=== PATIENT | male | born 1960 | race Caucasian/White ===

== ENCOUNTER 2017-07-01 19:24 | Inpatient (IN) | payer MEDICAID, OTHER ==
[~2017-07-01] VITALS: Ht 154.9 cm; Wt 69.6 kg
[~2017-07-01 19:24] MED LIST: INSU100I18 SC; INSU100I29 SQ-INSULIN; INSU100V14 SC; LISI-170 PO; METF500T4 PO
[2017-07-01] MEDS ORDERED: SODIUM CHLORIDE 0.9% 1,000 ML IV ONE (20:35)
[2017-07-01] MEDS ORDERED: KETOROLAC 30 MG/1 ML ONE (20:39)
[2017-07-01] MEDS ORDERED: OMNIPAQUE 350 MG/ML, 100ML BOTTLE ONE (20:40)
[2017-07-01 20:55] LABS: MEAN CORPUSCULAR HEMOGLOBIN 29.3 pg (27.5-34.5); MEAN CORPUSCULAR HGB CONC 33.7 g/dL (33.2-36.2); MEAN PLATELET VOLUME 8.4 fL (7.4-10.4); PLATELET COUNT 356 x10^3/uL (130-400); RED BLOOD COUNT 4.71 x10^6/uL (4.38-5.82); RED CELL DISTRIBUTION WIDTH 12.6 % (9.4-14.8)
[2017-07-01] MEDS ORDERED: SODIUM CHLORIDE FLUSH 10ML SYR IVF ONE (21:00)
[2017-07-01] MEDS ORDERED: KETOROLAC 30 MG/1 ML IVPush ONE (21:00)
[2017-07-01 21:02] LABS: INTERNATIONAL NORMALIZED RATIO 1.09 (0.93-1.1); PROTHROMBIN TIME 11.3 Seconds (9.6-11.5)
[2017-07-01 21:05] LABS: ALANINE AMINOTRANSFERASE 16 U/L (12-78); ALBUMIN 2.4 g/dL (3.4-5.0); ANION GAP 13 mmol/L (5-15); CALCIUM 8.3 mg/dL (8.5-10.1); CHLORIDE 96 mmol/L (98-107)
[2017-07-01 21:10] LABS: ALKALINE PHOSPHATASE 107 U/L (45-117); BILIRUBIN,TOTAL 1.1 mg/dL (0.2-1.0); CREATININE 1.17 mg/dL (0.7-1.3); TOTAL PROTEIN 7.6 g/dL (6.4-8.2); TROPONIN I < 0.015 ng/mL (0.000-0.045)
[2017-07-01] MEDS ORDERED: ACETAMINOPHEN 500 MG TABLET ONE (21:12)
[2017-07-01] MEDS ORDERED: AZITHROMYCIN 500 MG in SODIUM CHLORIDE 0.9% 250 ML IV ONE (21:30)
[2017-07-01] MEDS ORDERED: SODIUM CHLORIDE 0.9% 1,000ML IVBOLUS ONE (21:30)
[2017-07-01] MEDS ORDERED: CEFTRIAXONE 1,000 MG in SODIUM CHLORIDE 0.9% 50 ML IVPB ONE (21:30)
[2017-07-01 21:36] LABS: BASOPHILS # (AUTO) 0.02 x10^3/uL (0-0.1); BASOPHILS % (AUTO) 0 % (0-1); EOSINOPHILS % (AUTO) 0 % (1-7); LYMPHOCYTES # (AUTO) 0.72 x10^3/uL (1-3.4); LYMPHOCYTES % (AUTO) 5 % (22-44); MD SCAN; MONOCYTES # (AUTO) 1.21 x10^3/uL (0.2-0.8); MONOCYTES % (AUTO) 8 % (2-9); NEUTROPHILS # (AUTO) 13.53 x10^3/uL (1.8-6.8); NEUTROPHILS % (AUTO) 87 % (42-75)
[2017-07-01] MEDS ORDERED: CEFTRIAXONE PMX 1GM/50ML 50 ML ONE (22:11)
[2017-07-01 22:31] LABS: RAPID INFLUENZA A Negative (Negative); RAPID INFLUENZA B Negative (Negative)
[2017-07-01] MEDS ORDERED: INSU100V8 SQ (22:41)
[2017-07-01] MEDS ORDERED: DOCUSATE 100 MG CAPSULE PO PRN (23:30)
[2017-07-01] MEDS ORDERED: ONDANSETRON ODT 4 MG PO PRN (23:30)
[2017-07-01] MEDS ORDERED: INSULIN ASPART 100 UNITS/ML, PEN SQ-INSULIN SCH (23:30)
[2017-07-01] MEDS ORDERED: ENALAPRILAT 1.25 MG/ML, 2ML IVPush PRN (23:30)
[2017-07-01] MEDS ORDERED: KETOROLAC 30 MG/1 ML IM PRN (23:30)
[2017-07-01] MEDS: INSULIN GLARGINE 100 UNITS/ML, PEN SQ-INSULIN SCH (23:30)
[2017-07-01] MEDS ORDERED: TEMAZEPAM 15 MG CAPSULE PO PRN (23:30)
[2017-07-02 00:38] VITALS: BP 141/81
[2017-07-02] MEDS ORDERED: LISI5TAB7 PO (00:59)
[2017-07-02] MEDS ORDERED: SIMV20TA3 PO (01:07)
[2017-07-02] MEDS ORDERED: ASPI-621 PO (01:08)
[2017-07-02] MEDS ORDERED: GLIP10TA13 PO (01:09)
[2017-07-02] MEDS: ENOXAPARIN 40 MG/0.4 ML SQ SCH ×2 (01:25→01:27)
[2017-07-02] MEDS: SODIUM CHLORIDE 0.9% 1,000 ML IV SCH ×3 (01:28→17:02)
[2017-07-02 02:33] VITALS: BP 141/81
[2017-07-02 03:00] VITALS: BP 102/68
[2017-07-02 03:42] LABS: TROPONIN I < 0.015 ng/mL (0.000-0.045)
[2017-07-02] MEDS: ACETAMINOPHEN 325 MG TABLET PO PRN (06:40)
[2017-07-02] MEDS: INSULIN LISPRO 100 UNITS/ML, PEN SQ-INSULIN SCH ×2 (07:00→13:11)
[2017-07-02 07:02] VITALS: BP 98/63
[2017-07-02] MEDS ORDERED: INSULIN LISPRO 100 UNITS/ML, PEN SQ-INSULIN SCH (09:00)
[2017-07-02] MEDS: LISINOPRIL 20 MG TABLET PO SCH (09:23)
[2017-07-02 09:27] LABS: TROPONIN I < 0.015 ng/mL (0.000-0.045)
[2017-07-02 11:20] LABS: ALBUMIN 2.1 g/dL (3.4-5.0); ANION GAP 6 mmol/L (5-15); CHLORIDE 102 mmol/L (98-107); CREATININE 1.18 mg/dL (0.7-1.3)
[2017-07-02 11:28] LABS: MEAN CORPUSCULAR HEMOGLOBIN 29.4 pg (27.5-34.5); MEAN CORPUSCULAR HGB CONC 33.5 g/dL (33.2-36.2); MEAN CORPUSCULAR VOLUME 87.7 fL (81-97); MEAN PLATELET VOLUME 8.4 fL (7.4-10.4); PLATELET COUNT 354 x10^3/uL (130-400); RED BLOOD COUNT 4.54 x10^6/uL (4.38-5.82); RED CELL DISTRIBUTION WIDTH 13.3 % (9.4-14.8)
[2017-07-02 11:29] LABS: MD YES
[2017-07-02 11:31] LABS: BAND#(MANUAL) 2.07 x10^3/uL; BANDS%(MANUAL) 13 % (0-7); LYMPH#(MANUAL) 1.43 x10^3/uL (1-3.4); LYMPHS% (MANUAL) 9 % (22-44); MONOS#(MANUAL) 0.64 x10^3/uL (0.3-2.7); MONOS% (MANUAL) 4 % (2-9); SEG#(MANUAL) 11.77 x10^3/uL (1.8-6.8); SEGS% (MANUAL) 74 % (42-75)
[2017-07-02 11:33] LABS: <PLATELET ESTIMATE> ADEQUATE; <PLT MORPHOLOGY> NORMAL PLT MORPH; <RBC MORPHOLOGY> NORMAL; PMNS WITH VACUOLES 1+; TOXIC GRAN 1+
[2017-07-02 14:42] VITALS: BP 96/63
[2017-07-02] MEDS ORDERED: VANCOMYCIN PER PHARMACY MC PRN (16:30)
[2017-07-02] MEDS: GUAIFENESIN 200 MG TABLET PO SCH ×2 (16:54→20:36)
[2017-07-02] MEDS ORDERED: PHARMACOKINETIC CONSULTATION MC ONE (17:00)
[2017-07-02] MEDS ORDERED: PHARMACOKINETIC MONITORING MC PRN (17:00)
[2017-07-02] MEDS: VANCOMYCIN 1,200 MG in SODIUM CHLORIDE 0.9% 250 ML IV SCH (17:03)
[2017-07-02] MEDS: INSULIN REGULAR 100 UNITS/ML, 3ML VIAL SQ-INSULIN SCH ×2 (18:34→20:37)
[2017-07-02 19:42] VITALS: BP 101/66
[2017-07-02] MEDS: AZITHROMYCIN 500 MG in SODIUM CHLORIDE 0.9% 250 ML IV SCH (20:37)
[2017-07-02] MEDS: INSULIN GLARGINE 100 UNITS/ML, PEN SQ-INSULIN SCH (20:37)
[2017-07-02] MEDS ORDERED: CEFTRIAXONE 2 GM in SODIUM CHLORIDE 0.9% 50 ML IV SCH (21:30)
[2017-07-02] MEDS ORDERED: CEFTRIAXONE PMX 1GM/50ML 50 ML IV SCH (21:30)
[2017-07-02] MEDS ORDERED: CEFTRIAXONE 1,000 MG in SODIUM CHLORIDE 0.9% 50 ML IV SCH (21:30)
[2017-07-03 02:01] VITALS: BP 104/68
[2017-07-03] MEDS: SODIUM CHLORIDE 0.9% 1,000 ML IV SCH ×2 (05:02→13:19)
[2017-07-03] MEDS: VANCOMYCIN 1,200 MG in SODIUM CHLORIDE 0.9% 250 ML IV SCH ×2 (05:02→20:14)
[2017-07-03] MEDS: GUAIFENESIN 200 MG TABLET PO SCH ×4 (05:02→20:14)
[2017-07-03 05:24] LABS: MEAN CORPUSCULAR HEMOGLOBIN 29.3 pg (27.5-34.5); MEAN CORPUSCULAR HGB CONC 33.4 g/dL (33.2-36.2); MEAN CORPUSCULAR VOLUME 87.8 fL (81-97); MEAN PLATELET VOLUME 8.3 fL (7.4-10.4); PLATELET COUNT 376 x10^3/uL (130-400); RED BLOOD COUNT 4.21 x10^6/uL (4.38-5.82); RED CELL DISTRIBUTION WIDTH 12.9 % (9.4-14.8)
[2017-07-03 05:36] LABS: ALBUMIN 1.6 g/dL (3.4-5.0); ANION GAP 9 mmol/L (5-15); CALCIUM 7.6 mg/dL (8.5-10.1); CHLORIDE 109 mmol/L (98-107)
[2017-07-03 05:41] LABS: ALANINE AMINOTRANSFERASE 12 U/L (12-78); ALKALINE PHOSPHATASE 119 U/L (45-117); BILIRUBIN,TOTAL 0.6 mg/dL (0.2-1.0); CREATININE 0.85 mg/dL (0.7-1.3); TOTAL PROTEIN 5.8 g/dL (6.4-8.2)
[2017-07-03 06:00] LABS: MD YES
[2017-07-03 06:02] LABS: <PLATELET ESTIMATE> ADEQUATE; <PLT MORPHOLOGY> NORMAL PLT MORPH; <RBC MORPHOLOGY> NORMAL; BAND#(MANUAL) 2.38 x10^3/uL; BANDS%(MANUAL) 14 % (0-7); LYMPH#(MANUAL) 0.85 x10^3/uL (1-3.4); LYMPHS% (MANUAL) 5 % (22-44); MONOS#(MANUAL) 0.85 x10^3/uL (0.3-2.7); MONOS% (MANUAL) 5 % (2-9); SEG#(MANUAL) 12.92 x10^3/uL (1.8-6.8); SEGS% (MANUAL) 76 % (42-75)
[2017-07-03] MEDS: INSULIN REGULAR 100 UNITS/ML, 3ML VIAL SQ-INSULIN SCH ×4 (08:30→20:12)
[2017-07-03 08:39] VITALS: BP 104/70
[2017-07-03] MEDS: ACETAMINOPHEN 325 MG TABLET PO PRN ×2 (09:22→20:14)
[2017-07-03] MEDS: LISINOPRIL 20 MG TABLET PO SCH (09:25)
[2017-07-03] MEDS: INSULIN GLARGINE 100 UNITS/ML, PEN SQ-INSULIN SCH ×2 (09:25→20:12)
[2017-07-03] MEDS ORDERED: ALBUTEROL SULFATE 2.5 MG/3 ML ONE (10:26)
[2017-07-03] MEDS: IBUPROFEN 200 MG TABLET PO PRN (13:18)
[2017-07-03 14:29] VITALS: BP 99/66
[2017-07-03] MEDS: ALBUTEROL SULFATE 2.5 MG/3 ML NPPB SCH ×2 (15:00→19:10)
[2017-07-03] MEDS: LINEZOLID PMX 600MG/300ML 300 ML IV SCH (16:39)
[2017-07-03 16:49] LABS: MICROSCOPIC INDICATED
[2017-07-03 16:58] LABS: CULTURE INDICATED? NO
[2017-07-03] MEDS ORDERED: SODIUM CHLORIDE 0.9%, 500ML IVBOLUS ONE (17:30)
[2017-07-03 17:57] VITALS: BP 109/72
[2017-07-03 19:50] VITALS: BP 111/66
[2017-07-03] MEDS: AZITHROMYCIN 500 MG in SODIUM CHLORIDE 0.9% 250 ML IV SCH (21:30)
[2017-07-03] MEDS: ENOXAPARIN 40 MG/0.4 ML SQ SCH (23:18)
[2017-07-04 02:00] VITALS: BP 115/73
[2017-07-04] MEDS: SODIUM CHLORIDE 0.9% 1,000 ML IV SCH (03:00)
[2017-07-04] MEDS: LINEZOLID PMX 600MG/300ML 300 ML IV SCH (03:59)
[2017-07-04 05:02] LABS: MEAN CORPUSCULAR HEMOGLOBIN 29.6 pg (27.5-34.5); MEAN CORPUSCULAR HGB CONC 33.6 g/dL (33.2-36.2); MEAN CORPUSCULAR VOLUME 88.2 fL (81-97); MEAN PLATELET VOLUME 8.2 fL (7.4-10.4); PLATELET COUNT 398 x10^3/uL (130-400); RED BLOOD COUNT 3.91 x10^6/uL (4.38-5.82); RED CELL DISTRIBUTION WIDTH 13.3 % (9.4-14.8)
[2017-07-04 05:16] LABS: CHLORIDE 112 mmol/L (98-107)
[2017-07-04 05:24] LABS: ALANINE AMINOTRANSFERASE 9 U/L (12-78); ALBUMIN 1.4 g/dL (3.4-5.0); ALKALINE PHOSPHATASE 95 U/L (45-117); ANION GAP 10 mmol/L (5-15); BILIRUBIN,TOTAL 0.4 mg/dL (0.2-1.0); CALCIUM 7.6 mg/dL (8.5-10.1); CREATININE 0.54 mg/dL (0.7-1.3); TOTAL PROTEIN 5.4 g/dL (6.4-8.2); VANCOMYCIN,TROUGH 14.1 mcg/mL (5.0-10.0)
[2017-07-04] MEDS: GUAIFENESIN 200 MG TABLET PO SCH ×4 (05:54→20:11)
[2017-07-04 05:59] LABS: MD YES
[2017-07-04 06:02] LABS: BAND#(MANUAL) 0.29 x10^3/uL; BANDS%(MANUAL) 2 % (0-7); EOS#(MANUAL) 0.43 x10^3/uL (0.0-0.4); EOS% (MANUAL) 3 % (1-7); LYMPH#(MANUAL) 1.43 x10^3/uL (1-3.4); LYMPHS% (MANUAL) 10 % (22-44); MONOS% (MANUAL) 7 % (2-9); SEG#(MANUAL) 11.15 x10^3/uL (1.8-6.8); SEGS% (MANUAL) 78 % (42-75)
[2017-07-04 06:03] LABS: <PLATELET ESTIMATE> ADEQUATE; <PLT MORPHOLOGY> NORMAL PLT MORPH; <RBC MORPHOLOGY> NORMAL
[2017-07-04 06:50] VITALS: BP 129/77
[2017-07-04] MEDS: ALBUTEROL SULFATE 2.5 MG/3 ML NPPB SCH ×3 (07:00→18:43)
[2017-07-04] MEDS: INSULIN REGULAR 100 UNITS/ML, 3ML VIAL SQ-INSULIN SCH ×4 (07:00→20:12)
[2017-07-04] MEDS ORDERED: POTASSIUM CHLORIDE 20 MEQ TAB.ER.PRT ONE (07:55)
[2017-07-04] MEDS ORDERED: SODIUM PHOSPHATE 4 MEQ/ML IV SCH (08:00)
[2017-07-04] MEDS ORDERED: SODIUM CHLORIDE 0.45% 1,000 ML IV SCH (08:00)
[2017-07-04] MEDS: VANCOMYCIN 1,200 MG in SODIUM CHLORIDE 0.9% 250 ML IV SCH (08:03)
[2017-07-04] MEDS: INSULIN GLARGINE 100 UNITS/ML, PEN SQ-INSULIN SCH ×2 (08:05→20:12)
[2017-07-04] MEDS ORDERED: MAGNESIUM SULFATE PMX 2GM/50ML 50 ML IV ONE (09:00)
[2017-07-04] MEDS ORDERED: SODIUM PHOSPHATE 40 MEQ in SODIUM CHLORIDE 0.9% 500 ML IV SCH (09:00)
[2017-07-04] MEDS ORDERED: POTASSIUM CHLORIDE 20 MEQ TAB.ER.PRT PO ONE (09:00)
[2017-07-04] MEDS: IBUPROFEN 200 MG TABLET PO PRN (09:32)
[2017-07-04] MEDS: CEFAZOLIN PMX 2GM/50ML 50 ML IVPB SCH ×2 (12:23→20:11)
[2017-07-04 13:22] VITALS: BP 105/64
[2017-07-04 19:05] VITALS: BP 129/78
[2017-07-04] MEDS: ENOXAPARIN 40 MG/0.4 ML SQ SCH (23:41)
[2017-07-05 00:58] VITALS: BP 133/79
[2017-07-05] MEDS: CEFAZOLIN PMX 2GM/50ML 50 ML IVPB SCH ×3 (03:53→20:10)
[2017-07-05] MEDS: GUAIFENESIN 200 MG TABLET PO SCH ×4 (05:00→20:56)
[2017-07-05 05:42] LABS: HCT (SEDRATE) 36.9 % (39.2-51.8); MEAN CORPUSCULAR HEMOGLOBIN 29.2 pg (27.5-34.5); MEAN CORPUSCULAR HGB CONC 33.3 g/dL (33.2-36.2); MEAN CORPUSCULAR VOLUME 87.8 fL (81-97); MEAN PLATELET VOLUME 8.4 fL (7.4-10.4); PLATELET COUNT 490 x10^3/uL (130-400); RED CELL DISTRIBUTION WIDTH 13.5 % (9.4-14.8)
[2017-07-05 05:50] LABS: ALBUMIN 1.6 g/dL (3.4-5.0); ANION GAP 10 mmol/L (5-15); CALCIUM 7.6 mg/dL (8.5-10.1); CHLORIDE 106 mmol/L (98-107); CREATININE 0.92 mg/dL (0.7-1.3)
[2017-07-05 06:05] LABS: BASOPHILS # (AUTO) 0.15 x10^3/uL (0-0.1); BASOPHILS % (AUTO) 1 % (0-1); EOSINOPHILS # (AUTO) 0.08 x10^3/uL (0-0.4); EOSINOPHILS % (AUTO) 1 % (1-7); LYMPHOCYTES % (AUTO) 8 % (22-44); MD SCAN; MONOCYTES # (AUTO) 1.29 x10^3/uL (0.2-0.8); MONOCYTES % (AUTO) 11 % (2-9); NEUTROPHILS # (AUTO) 9.14 x10^3/uL (1.8-6.8); NEUTROPHILS % (AUTO) 79 % (42-75)
[2017-07-05 06:21] LABS: SEDIMENTATION RATE 109 mm/hr (0-10)
[2017-07-05 06:31] LABS: HEMOGLOBIN A1C 14.5 % (4.2-6.3)
[2017-07-05] MEDS: ALBUTEROL SULFATE 2.5 MG/3 ML NPPB SCH (07:00)
[2017-07-05] MEDS ORDERED: POTASSIUM CHLORIDE 20 MEQ TAB.ER.PRT PO ONE (08:00)
[2017-07-05 08:41] VITALS: BP 112/93
[2017-07-05] MEDS: SODIUM CHLORIDE 0.45% 1,000 ML IV SCH ×2 (09:14→20:57)
[2017-07-05] MEDS: INSULIN GLARGINE 100 UNITS/ML, PEN SQ-INSULIN SCH ×2 (09:15→20:56)
[2017-07-05] MEDS: INSULIN REGULAR 100 UNITS/ML, 3ML VIAL SQ-INSULIN SCH ×4 (09:15→20:56)
[2017-07-05 16:19] VITALS: BP 124/80
[2017-07-05 19:53] VITALS: BP 112/66
[2017-07-05] MEDS: ENOXAPARIN 40 MG/0.4 ML SQ SCH (23:16)
[2017-07-06 00:58] VITALS: BP 115/73
[2017-07-06] MEDS: SODIUM CHLORIDE 0.45% 1,000 ML IV SCH (04:28)
[2017-07-06] MEDS: CEFAZOLIN PMX 2GM/50ML 50 ML IVPB SCH ×3 (04:28→20:35)
[2017-07-06 05:30] LABS: ANION GAP 9 mmol/L (5-15); BASOPHILS # (AUTO) 0.03 x10^3/uL (0-0.1); BASOPHILS % (AUTO) 0 % (0-1); CHLORIDE 107 mmol/L (98-107); EOSINOPHILS # (AUTO) 0.11 x10^3/uL (0-0.4); EOSINOPHILS % (AUTO) 1 % (1-7); LYMPHOCYTES # (AUTO) 1.15 x10^3/uL (1-3.4); LYMPHOCYTES % (AUTO) 10 % (22-44); MD NO; MEAN CORPUSCULAR HEMOGLOBIN 29.6 pg (27.5-34.5); MEAN CORPUSCULAR HGB CONC 33.8 g/dL (33.2-36.2); MEAN CORPUSCULAR VOLUME 87.7 fL (81-97); MEAN PLATELET VOLUME 7.8 fL (7.4-10.4); MONOCYTES # (AUTO) 1.14 x10^3/uL (0.2-0.8); MONOCYTES % (AUTO) 10 % (2-9); NEUTROPHILS # (AUTO) 9.02 x10^3/uL (1.8-6.8); NEUTROPHILS % (AUTO) 79 % (42-75); PLATELET COUNT 563 x10^3/uL (130-400); RED BLOOD COUNT 4.02 x10^6/uL (4.38-5.82); RED CELL DISTRIBUTION WIDTH 13.6 % (9.4-14.8)
[2017-07-06 05:32] LABS: CREATININE 0.64 mg/dL (0.7-1.3)
[2017-07-06] MEDS: GUAIFENESIN 200 MG TABLET PO SCH ×4 (06:21→21:31)
[2017-07-06] MEDS ORDERED: ALBUTEROL SULFATE 2.5 MG/3 ML NPPB SCH (07:00)
[2017-07-06] MEDS ORDERED: POTASSIUM CHLORIDE 20 MEQ TAB.ER.PRT PO ONE ×2 (07:30→11:30)
[2017-07-06 08:59] VITALS: BP 103/64
[2017-07-06] MEDS: INSULIN GLARGINE 100 UNITS/ML, PEN SQ-INSULIN SCH ×2 (09:21→21:33)
[2017-07-06] MEDS: INSULIN REGULAR 100 UNITS/ML, 3ML VIAL SQ-INSULIN SCH ×4 (09:21→21:32)
[2017-07-06 15:33] VITALS: BP 116/76
[2017-07-06 20:00] VITALS: BP 109/60
[2017-07-07] MEDS: ENOXAPARIN 40 MG/0.4 ML SQ SCH (01:30)
[2017-07-07 01:35] VITALS: BP 106/71
[2017-07-07] MEDS: CEFAZOLIN PMX 2GM/50ML 50 ML IVPB SCH ×3 (04:47→20:24)
[2017-07-07 05:08] LABS: BASOPHILS % (AUTO) 1 % (0-1); EOSINOPHILS % (AUTO) 2 % (1-7); LYMPHOCYTES # (AUTO) 1.47 x10^3/uL (1-3.4); LYMPHOCYTES % (AUTO) 14 % (22-44); MD NO; MEAN CORPUSCULAR HEMOGLOBIN 28.9 pg (27.5-34.5); MEAN CORPUSCULAR HGB CONC 32.7 g/dL (33.2-36.2); MEAN CORPUSCULAR VOLUME 88.4 fL (81-97); MEAN PLATELET VOLUME 7.4 fL (7.4-10.4); MONOCYTES # (AUTO) 0.85 x10^3/uL (0.2-0.8); MONOCYTES % (AUTO) 8 % (2-9); NEUTROPHILS # (AUTO) 7.87 x10^3/uL (1.8-6.8); NEUTROPHILS % (AUTO) 75 % (42-75); PLATELET COUNT 648 x10^3/uL (130-400); RED BLOOD COUNT 4.08 x10^6/uL (4.38-5.82); RED CELL DISTRIBUTION WIDTH 13.5 % (9.4-14.8)
[2017-07-07 05:15] LABS: ALBUMIN 1.6 g/dL (3.4-5.0); ANION GAP 7 mmol/L (5-15); CALCIUM 7.6 mg/dL (8.5-10.1); CHLORIDE 107 mmol/L (98-107)
[2017-07-07] MEDS: GUAIFENESIN 200 MG TABLET PO SCH ×4 (06:32→20:10)
[2017-07-07 08:01] VITALS: BP 110/72
[2017-07-07] MEDS: INSULIN REGULAR 100 UNITS/ML, 3ML VIAL SQ-INSULIN SCH ×4 (08:50→20:11)
[2017-07-07] MEDS: INSULIN GLARGINE 100 UNITS/ML, PEN SQ-INSULIN SCH ×2 (08:51→20:11)
[2017-07-07 14:30] VITALS: BP 138/88
[2017-07-07 19:02] VITALS: BP 100/54
[2017-07-08] MEDS: ENOXAPARIN 40 MG/0.4 ML SQ SCH (00:49)
[2017-07-08 01:32] VITALS: BP 115/77
[2017-07-08] MEDS: CEFAZOLIN PMX 2GM/50ML 50 ML IVPB SCH ×3 (04:36→20:14)
[2017-07-08] MEDS: GUAIFENESIN 200 MG TABLET PO SCH ×4 (05:10→19:35)
[2017-07-08 08:30] VITALS: BP 114/79
[2017-07-08] MEDS: INSULIN REGULAR 100 UNITS/ML, 3ML VIAL SQ-INSULIN SCH ×4 (09:12→20:15)
[2017-07-08] MEDS: INSULIN GLARGINE 100 UNITS/ML, PEN SQ-INSULIN SCH ×2 (09:15→20:15)
[2017-07-08 13:58] VITALS: BP 137/71
[2017-07-08 19:03] VITALS: BP 106/65
[2017-07-09 01:57] VITALS: BP 121/78
[2017-07-09] MEDS: ENOXAPARIN 40 MG/0.4 ML SQ SCH (02:57)
[2017-07-09] MEDS: CEFAZOLIN PMX 2GM/50ML 50 ML IVPB SCH ×3 (04:45→19:53)
[2017-07-09] MEDS: GUAIFENESIN 200 MG TABLET PO SCH ×4 (06:00→21:00)
[2017-07-09 07:25] VITALS: BP 111/68
[2017-07-09] MEDS ORDERED: INSULIN GLARGINE 100 UNITS/ML, PEN SQ-INSULIN SCH ×2 (09:00→21:00)
[2017-07-09] MEDS: INSULIN REGULAR 100 UNITS/ML, 3ML VIAL SQ-INSULIN SCH ×4 (09:52→21:10)
[2017-07-09 13:10] VITALS: BP 101/65
[2017-07-09 19:01] VITALS: BP 108/72
[2017-07-10] MEDS: GUAIFENESIN 200 MG TABLET PO SCH ×3 (00:27→17:03)
[2017-07-10 02:00] VITALS: BP 118/64
[2017-07-10] MEDS: ENOXAPARIN 40 MG/0.4 ML SQ SCH (03:37)
[2017-07-10] MEDS: CEFAZOLIN PMX 2GM/50ML 50 ML IVPB SCH ×2 (03:38→12:06)
[2017-07-10 07:47] VITALS: BP 118/75
[2017-07-10] MEDS: INSULIN REGULAR 100 UNITS/ML, 3ML VIAL SQ-INSULIN SCH ×2 (07:51→12:06)
[2017-07-10] MEDS ORDERED: INSULIN GLARGINE 100 UNITS/ML, PEN SQ-INSULIN SCH (09:00)
[2017-07-10 09:23] LABS: BASOPHILS # (AUTO) 0.39 x10^3/uL (0-0.1); BASOPHILS % (AUTO) 3 % (0-1); EOSINOPHILS # (AUTO) 0.04 x10^3/uL (0-0.4); EOSINOPHILS % (AUTO) 0 % (1-7); LYMPHOCYTES # (AUTO) 1.11 x10^3/uL (1-3.4); LYMPHOCYTES % (AUTO) 10 % (22-44); MD NO; MEAN CORPUSCULAR HEMOGLOBIN 29.1 pg (27.5-34.5); MEAN CORPUSCULAR HGB CONC 33.3 g/dL (33.2-36.2); MEAN CORPUSCULAR VOLUME 87.6 fL (81-97); MEAN PLATELET VOLUME 6.6 fL (7.4-10.4); MONOCYTES # (AUTO) 0.42 x10^3/uL (0.2-0.8); MONOCYTES % (AUTO) 4 % (2-9); NEUTROPHILS # (AUTO) 9.59 x10^3/uL (1.8-6.8); NEUTROPHILS % (AUTO) 83 % (42-75); PLATELET COUNT 700 x10^3/uL (130-400); RED BLOOD COUNT 4.31 x10^6/uL (4.38-5.82); RED CELL DISTRIBUTION WIDTH 13.4 % (9.4-14.8)
[2017-07-10] MEDS ORDERED: LISI5TAB7 PO (12:07)
[2017-07-10] MEDS ORDERED: GUAI200T3 PO (12:07)
[2017-07-10] MEDS ORDERED: INSU100I13 SQ-INSULIN ×2 (12:07)
[2017-07-10] MEDS ORDERED: IBUP-1484 PO (12:07)
[2017-07-10] MEDS ORDERED: ERTA1VIA IV ×2 (12:07→12:12)
[2017-07-10 13:19] VITALS: BP 112/74
[2017-07-10] MEDS ORDERED: FLU VACC QS2017-18 (36MOS+) UP/PF 0.5 ML IM-VACC ONE (14:00)
[2017-07-10] MEDS ORDERED: FLU VACCINE PER PHARMACY IM ONE (14:00)
[2017-07-10] MEDS ORDERED: PNEUMOCOCCAL 23 VACCINE IM-VACC ONE (15:00)
[2017-07-11] MEDS ORDERED: INSU100V8 SQ (13:27)
== END 2017-07-10 17:33 | disposition home or self-care (01) | DRG 871 ==
LOC: ED 21:12 → SUATTDRO 22:34 → EDIP 22:49 → 5SO 07-02 00:09 → 4WST 07-03 17:40
PROVIDERS: ADMIT Hospitalist; ATTEND Hospitalist
PROC: 02HV33Z Insertion of Infusion Device into Superior Vena Cava, Percutaneous Approach (ICD-10-PCS; principal; 2017-07-07)
PROC: B548ZZA Ultrasonography of Superior Vena Cava, Guidance (ICD-10-PCS; 2017-07-07)
PROC: B5181ZA Fluoroscopy of Superior Vena Cava using Low Osmolar Contrast, Guidance (ICD-10-PCS; 2017-07-07)
DX: A41.2 Sepsis due to unspecified staphylococcus (principal); E43 Unspecified severe protein-calorie malnutrition; J96.01 Acute respiratory failure with hypoxia; J15.211 Pneumonia due to Methicillin susceptible Staphylococcus aureus; I11.9 Hypertensive heart disease without heart failure; E87.1 Hypo-osmolality and hyponatremia; E11.65 Type 2 diabetes mellitus with hyperglycemia; B95.61 Methicillin susceptible Staphylococcus aureus infection as the cause of diseases classified elsewhere; E78.5 Hyperlipidemia, unspecified; E78.00 Pure hypercholesterolemia, unspecified; D47.3 Essential (hemorrhagic) thrombocythemia; I25.10 Atherosclerotic heart disease of native coronary artery without angina pectoris; R65.20 Severe sepsis without septic shock; I25.2 Old myocardial infarction; Z68.29 Body mass index [BMI] 29.0-29.9, adult; Z82.49 Family history of ischemic heart disease and other diseases of the circulatory system; Z86.711 Personal history of pulmonary embolism; Z23 Encounter for immunization
CPT/HCPCS: 36415; 36569; 71045; 71046; 71275; 76937; 77001; 80048; 80053; 80202; 81001; 82040; 82962; 83036; 83605; 83735; 84100; 84145; 84484; 85025; 85610; 85651; 85730; 86140; 87040; 87070; 87077; 87147; 87186; 87205; 87400; 90686; 90732; 93005; 93306; 94640; 96361; 96365; 96366; 96368; 96374; J0456; J0690; J0696; J1650; J1815; J1885; J2020; J3370; J7613; Q9967; C1751; J3475; J7030; J7040; J7050

== ENCOUNTER → 2017-07-26 | Outpatient (CLI) | payer MEDICAID, OTHER ==
[~2017-07-26] MED LIST changes: +ASPI-621 PO; +ERTA1VIA IV; +GLIP10TA13 PO; +GUAI200T3 PO; +IBUP-1484 PO; +INSU100I13 SQ-INSULIN; +INSU100V8 SQ; +LISI5TAB7 PO; +SIMV20TA3 PO
== END ==
LOC: RAD 14:33
PROVIDERS: ATTEND Internal Medicine Infectious Disease
DX: A41.9 Sepsis, unspecified organism (principal); J18.9 Pneumonia, unspecified organism
CPT/HCPCS: 71046

== ENCOUNTER 2017-10-24 11:12 | Emergency (ER) | payer MEDICAID ==
[~2017-10-24] VITALS: Ht 154.9 cm; Wt 62.0 kg
[2017-10-24 11:14] VITALS: BP 130/80
[2017-10-24 11:47] LABS: BASOPHILS # (AUTO) 0.05 x10^3/uL (0-0.1); BASOPHILS % (AUTO) 1 % (0-1); EOSINOPHILS # (AUTO) 0.15 x10^3/uL (0-0.4); EOSINOPHILS % (AUTO) 2 % (1-7); LYMPHOCYTES # (AUTO) 1.42 x10^3/uL (1-3.4); LYMPHOCYTES % (AUTO) 15 % (22-44); MD NO; MEAN CORPUSCULAR HEMOGLOBIN 29.5 pg (27.5-34.5); MEAN CORPUSCULAR HGB CONC 33.4 g/dL (33.2-36.2); MEAN CORPUSCULAR VOLUME 88.4 fL (81-97); MEAN PLATELET VOLUME 8.2 fL (7.4-10.4); MONOCYTES # (AUTO) 0.77 x10^3/uL (0.2-0.8); MONOCYTES % (AUTO) 8 % (2-9); NEUTROPHILS % (AUTO) 75 % (42-75); PLATELET COUNT 348 x10^3/uL (130-400); RED BLOOD COUNT 4.86 x10^6/uL (4.38-5.82); RED CELL DISTRIBUTION WIDTH 13.3 % (9.4-14.8)
[2017-10-24 11:53] LABS: ALANINE AMINOTRANSFERASE 32 U/L (12-78); CALCIUM 8.1 mg/dL (8.5-10.1); CREATININE 0.81 mg/dL (0.7-1.3)
[2017-10-24 12:04] LABS: ALKALINE PHOSPHATASE 85 U/L (45-117); ANION GAP 10 mmol/L (5-15); BILIRUBIN,TOTAL 0.5 mg/dL (0.2-1.0); CHLORIDE 105 mmol/L (98-107); TOTAL PROTEIN 6.8 g/dL (6.4-8.2)
== END 2017-10-24 13:15 | disposition home or self-care (01) ==
LOC: ED 13:09
DX: K52.1 Toxic gastroenteritis and colitis (principal); B37.42 Candidal balanitis; I25.2 Old myocardial infarction; E78.00 Pure hypercholesterolemia, unspecified; I10 Essential (primary) hypertension; E11.9 Type 2 diabetes mellitus without complications; Z86.711 Personal history of pulmonary embolism
CPT/HCPCS: 36415; 74021; 80053; 82962; 83690; 85025; 99285

== ENCOUNTER 2017-11-14 10:03 | Emergency (ER) | payer MEDICAID ==
[~2017-11-14] VITALS: Ht 154.9 cm; Wt 60.8 kg
[2017-11-14] MEDS ORDERED: LISI5TAB7 PO (11:04)
[2017-11-14] MEDS ORDERED: INSULIN REGULAR 100 UNITS/ML, 3ML VIAL ONE (11:20)
[2017-11-14] MEDS ORDERED: SODIUM CHLORIDE 0.9% 1,000ML IVBOLUS ONE (11:30)
[2017-11-14] MEDS ORDERED: INSULIN REGULAR 100 UNITS/ML, 3ML VIAL IVPush ONE (11:30)
[2017-11-14 11:31] LABS: PH, VENOUS 7.396 pH (7.320-7.420)
[2017-11-14 11:32] LABS: MEAN CORPUSCULAR HEMOGLOBIN 29.2 pg (27.5-34.5); MEAN CORPUSCULAR HGB CONC 33.8 g/dL (33.2-36.2); MEAN CORPUSCULAR VOLUME 86.5 fL (81-97); MEAN PLATELET VOLUME 8.8 fL (7.4-10.4); PLATELET COUNT 317 x10^3/uL (130-400); RED CELL DISTRIBUTION WIDTH 12.9 % (9.4-14.8)
[2017-11-14 11:32] LABS: MICROSCOPIC NOT IND
[2017-11-14 11:33] LABS: FIO2 ROOM AIR %
[2017-11-14 11:43] LABS: BASOPHILS # (AUTO) 0.04 x10^3/uL (0-0.1); BASOPHILS % (AUTO) 1 % (0-1); EOSINOPHILS # (AUTO) 0.14 x10^3/uL (0-0.4); EOSINOPHILS % (AUTO) 2 % (1-7); LYMPHOCYTES # (AUTO) 1.82 x10^3/uL (1-3.4); LYMPHOCYTES % (AUTO) 23 % (22-44); MONOCYTES % (AUTO) 5 % (2-9); NEUTROPHILS % (AUTO) 70 % (42-75)
[2017-11-14 11:43] LABS: CULTURE INDICATED? NO
[2017-11-14 11:45] LABS: ALANINE AMINOTRANSFERASE 20 U/L (12-78); ALBUMIN 3.5 g/dL (3.4-5.0); ANION GAP 11 mmol/L (5-15); CALCIUM 8.4 mg/dL (8.5-10.1); CHLORIDE 99 mmol/L (98-107); CREATININE 1.21 mg/dL (0.7-1.3)
[2017-11-14 11:46] LABS: MD NO
[2017-11-14 11:47] LABS: ACETONE, SERUM Trace (10mg/dL) mg/dL (Negative); ALKALINE PHOSPHATASE 147 U/L (45-117); BILIRUBIN,TOTAL 0.6 mg/dL (0.2-1.0); TOTAL PROTEIN 7.2 g/dL (6.4-8.2)
[2017-11-14 13:27] VITALS: BP 121/84
== END 2017-11-14 13:29 | disposition home or self-care (01) ==
LOC: ED 12:10
DX: E11.65 Type 2 diabetes mellitus with hyperglycemia (principal); I25.2 Old myocardial infarction; E78.00 Pure hypercholesterolemia, unspecified; I10 Essential (primary) hypertension
CPT/HCPCS: 36415; 80053; 81003; 82010; 82803; 82962; 85025; 96374; 99284; J7030

== ENCOUNTER 2019-06-22 10:16 | Emergency (ER) | payer SELFPAY ==
[~2019-06-22] VITALS: Ht 154.9 cm; Wt 58.9 kg
[~2019-06-22 10:16] MED LIST changes: -ASPI-621 PO; +ASPI81TA45 PO; -GUAI200T3 PO; +GUAI200T37 PO; -IBUP-1484 PO; +IBUP-1902 PO; +METF500T17 PO; -METF500T4 PO
--- NOTE | 2019-06-22 10:26 | NUR ---
POC 540 IN TRIAGE
--- NOTE | 2019-06-22 10:33 | NUR ---
PT CAME IN CO OF HIGH BLOOD SUGAR. "WAS OVER 600 AT HOME". BS WAS 540 IN TRIAGE. PT ALSO STATES HES BEEN REALLY THIRSTY, UNABLE TO SLEEP AND CO OF POLYURIA. JAMES MARQUEZ, IS BEDSIDE. IS BEDSIDE.
[2019-06-22] MEDS ORDERED: SODIUM CHLORIDE 0.9% 1,000ML IVBOLUS ONE (11:00)
[2019-06-22] MEDS ORDERED: SODIUM CHLORIDE FLUSH 10ML SYR IVF ONE (11:00)
[2019-06-22] MEDS ORDERED: ATOR-2 PO (11:06)
--- NOTE | 2019-06-22 11:23 | NUR ---
PT RESTING IN HOSPITAL BED. BLANKET PROVIDED.
[2019-06-22 11:26] LABS: BASOPHILS # (AUTO) 0.05 x10^3/uL (0-0.1); BASOPHILS % (AUTO) 1 % (0-1); EOSINOPHILS # (AUTO) 0.37 x10^3/uL (0-0.4); EOSINOPHILS % (AUTO) 6 % (1-7); LYMPHOCYTES # (AUTO) 1.16 x10^3/uL (1-3.4); LYMPHOCYTES % (AUTO) 17 % (22-44); MD NO; MEAN CORPUSCULAR HEMOGLOBIN 29.4 pg (27.5-34.5); MEAN CORPUSCULAR HGB CONC 32.8 g/dL (33.2-36.2); MEAN CORPUSCULAR VOLUME 89.8 fL (81-97); MEAN PLATELET VOLUME 9.4 fL (7.4-10.4); MONOCYTES # (AUTO) 0.49 x10^3/uL (0.2-0.8); MONOCYTES % (AUTO) 7 % (2-9); NEUTROPHILS # (AUTO) 4.66 x10^3/uL (1.8-6.8); NEUTROPHILS % (AUTO) 69 % (42-75); PLATELET COUNT 292 x10^3/uL (130-400); RED BLOOD COUNT 4.87 x10^6/uL (4.38-5.82); RED CELL DISTRIBUTION WIDTH 12.7 % (9.4-14.8)
[2019-06-22 11:33] LABS: ALANINE AMINOTRANSFERASE 18 U/L (12-78); ALBUMIN 3.7 g/dL (3.4-5.0); ANION GAP 12 mmol/L (5-15); CALCIUM 9.1 mg/dL (8.5-10.1); CHLORIDE 94 mmol/L (98-107); CREATININE 1.22 mg/dL (0.7-1.3)
[2019-06-22 11:38] LABS: ALKALINE PHOSPHATASE 169 U/L (45-117); BILIRUBIN,TOTAL 0.9 mg/dL (0.2-1.0); TOTAL PROTEIN 8.3 g/dL (6.4-8.2); TROPONIN I < 0.015 ng/mL (0.000-0.045)
[2019-06-22 11:40] LABS: MICROSCOPIC NOT IND
[2019-06-22 11:44] LABS: CULTURE INDICATED? NO
[2019-06-22 11:48] LABS: ACETONE, SERUM Small (20mg/dL) mg/dL (Negative)
--- NOTE | 2019-06-22 11:54 | NUR ---
FS BS 429
[2019-06-22] MEDS ORDERED: INSULIN REGULAR 100 UNITS/ML, 3ML VIAL IVPush ONE (12:00)
[2019-06-22] MEDS ORDERED: INSULIN SINGLE DOSE, ER ONE (12:04)
[2019-06-22 12:27] VITALS: BP 113/80
--- NOTE | 2019-06-22 12:30 | NUR ---
PT RESTING IN HOSPITAL BED. NO NEEDS AT THIS TIME
== END 2019-06-22 14:23 | disposition home or self-care (01) ==
LOC: ED 10:51
DX: E11.65 Type 2 diabetes mellitus with hyperglycemia (principal); I25.2 Old myocardial infarction; E78.00 Pure hypercholesterolemia, unspecified; I10 Essential (primary) hypertension; R00.0 Tachycardia, unspecified
CPT/HCPCS: 36415; 71045; 80053; 81003; 82010; 82800; 82962; 84484; 85025; 93005; 96361; 96374; 99284; J1815; J7030

== ENCOUNTER 2020-10-25 07:09 | Emergency (ER) | payer MEDICAID ==
[~2020-10-25] VITALS: Ht 154.9 cm; Wt 67.9 kg
[~2020-10-25 07:09] MED LIST changes: +ATOR-2 PO; +SIMV20TA19 PO; -SIMV20TA3 PO
--- NOTE | 2020-10-25 07:53 | NUR ---
PT AMBULATED TO ROOM FROM TRIAGE. PT CO HIGH BLOOD SUGAR AND INCREASED URINATION AND THIRST. PT STATED THAT HE HAS BEEN TAKING HIS METFORMIN AND LONG ACTING INSULIN PERSCRIBED. PT ALSO STATED THAT HE HAS LEFT TESTICULAR PAIN FOR SEVERAL DAYS. PT DENIES ANY FEVER, COUGH, SOB, OR N/V/D.
[2020-10-25] MEDS ORDERED: DIPH,PERTUSS(ACELL),TET VAC/PF 0.5 ML IM-VACC ONE (08:00)
[2020-10-25] MEDS ORDERED: SODIUM CHLORIDE 0.9% 1,000ML IVBOLUS ONE (08:00)
[2020-10-25] MEDS ORDERED: SODIUM CHLORIDE FLUSH 10ML SYR IVF ONE (08:00)
[2020-10-25 08:10] LABS: BASOPHILS % (AUTO) 1 % (0-1); EOSINOPHILS % (AUTO) 10 % (1-7); LYMPHOCYTES % (AUTO) 26 % (22-44); MD NO; MEAN CORPUSCULAR HEMOGLOBIN 30.1 pg (27.5-34.5); MEAN CORPUSCULAR HGB CONC 33.5 g/dL (33.2-36.2); MONOCYTES % (AUTO) 6 % (2-9); NEUTROPHILS % (AUTO) 57 % (42-75); PLATELET COUNT 248 x10^3/uL (130-400); RED BLOOD COUNT 4.88 x10^6/uL (4.38-5.82); RED CELL DISTRIBUTION WIDTH 13.3 % (9.4-14.8)
[2020-10-25 08:16] LABS: ALBUMIN 3.9 g/dL (3.4-5.0); ANION GAP 6 mmol/L (5-15); CALCIUM 8.7 mg/dL (8.5-10.1); CHLORIDE 103 mmol/L (98-107)
[2020-10-25 08:21] LABS: ALANINE AMINOTRANSFERASE 20 U/L (12-78); ALKALINE PHOSPHATASE 102 U/L (45-117); BILIRUBIN,TOTAL 0.8 mg/dL (0.2-1.0); TOTAL PROTEIN 7.4 g/dL (6.4-8.2)
--- NOTE | 2020-10-25 09:00 | NUR ---
PT RESTING COMFORTABLY IN [facility]. CALL LIGHT WITHIN REACH.
[2020-10-25 09:03] LABS: MICROSCOPIC NOT IND
[2020-10-25 09:05] LABS: ACETONE, SERUM Negative (Negative)
[2020-10-25 09:50] VITALS: BP 142/81
--- NOTE | 2020-10-25 10:25 | NUR ---
DISCHARGE INSTRUCTIONS REVIEWED WITH PT. ALL QUESTIONS ANSWERED AT THIS TIME.
== END 2020-10-25 10:28 | disposition home or self-care (01) ==
LOC: ED 08:08
DX: E10.65 Type 1 diabetes mellitus with hyperglycemia (principal); E78.00 Pure hypercholesterolemia, unspecified; I10 Essential (primary) hypertension; I25.2 Old myocardial infarction; Z86.711 Personal history of pulmonary embolism
CPT/HCPCS: 36415; 76870; 80053; 81003; 82010; 82800; 85025; 96360; 99284; J7030; 82962